=== PATIENT | female | born 1995 | race African-American/Black ===

== ENCOUNTER 2017-02-09 05:25 | Emergency (ER) | payer OTHER ==
[2017-02-09] MEDS ORDERED: Ketorolac Tromethamine 60 MG/2 ML VIAL ONE (06:03)
[2017-02-09] MEDS ORDERED: Amoxicillin/Potassium Clav 875 MG TAB ONE (06:03)
== END 2017-02-09 06:14 | disposition home or self-care (01) ==
LOC: ERS 05:25
DX: K02.9 Dental caries, unspecified (principal); J45.909 Unspecified asthma, uncomplicated
CPT/HCPCS: 96372; J1885

== ENCOUNTER 2017-02-19 17:15 | Emergency (ER) | payer OTHER ==
[~2017-02-19 17:15] MED LIST: ISOVUE-370 76%-LOCM 1 ML ONE
[2017-02-19 18:19] LABS: #Basophils 0.1 thou/uL (0.0-0.2); #Eosinphils 0.7 thou/uL (0.0-0.7); #Monocytes 0.8 thou/uL (0.11-0.59); #Neutrophils 7.1 thou/uL (1.40-6.50); %Basophils 0.9 % (0.0-1.0); %Eosinophils 6.1 % (0.0-10.0); %Monocytes 6.4 % (0.0-10.0); Hematocrit 40.4 % (36.0-47.0); Mean Platelet Volume 8.7 fL (7.4-10.4); Red Blood Cell (RBC) Count 4.61 mill/uL (4.20-5.40); White Blood Cell (WBC) Count 11.6 thou/uL (4.8-10.8)
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
[2017-02-19 18:42] LABS: ALT (SGPT) 32 U/L (8-55); AST (SGOT) 14 U/L (5-34); Alkaline Phosphatase 48 U/L (40-150); Anion Gap 12 mmol/L (10-20); BUN (Urea Nitrogen) 9 mg/dL (7.0-18.7); Bilirubin, Total 0.2 mg/dL (0.2-1.2); Calc. Creatinine Clearance 0 mL/min (70-130); Calcium 8.7 mg/dL (7.8-10.44); Carbon Dioxide 20 mmol/L (22-29); Chloride 111 mmol/L (98-107); Estimated GFR-MDRD Greater than 90; Globulin 2.6 g/dL (2.4-3.5); Lipase 25 U/L (8-78); Protein, Total 6.5 g/dL (6.0-8.3)
[2017-02-19] MEDS ORDERED: Ketorolac Tromethamine 30 MG/ML VIAL ONE ×2 (19:24→19:26)
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
[2017-02-19 20:36] LABS: Bilirubin Negative (Negative); Blood, Urine Large (Negative); Glucose, Urine (Dipstick) Negative (Negative); Ketone, Urine Negative (Negative); Nitrite Negative (Negative); Protein, Urine (Dipstick) Negative (Neg-Trace); Urobilinogen 0.2 mg/dL (0.2-1.0)
[2017-02-19 20:39] LABS: Bacteria/HPF Rare-Few HPF (None Seen); Hyaline Casts/LPF 0-3 HYALINE CAST LPF (0-3 Hyaline); RBC/HPF GREATER THAN 50-TNTC HPF (0-3); Squamous Epithelial 0-3 HPF (0-3)
[2017-02-19 20:42] LABS: Acetaminophen Less than 6.0 mcg/mL (10.0-30.0); Salicylate Less than 8.0 mg/dL (15.0-30.0)
[2017-02-19 20:45] LABS: Amphetamine Not Detected (NotDetected); Methadone Not Detected (NotDetected); Methamphetamine Not Detected (NotDetected)
== END 2017-02-19 23:40 | disposition home or self-care (01) ==
LOC: ERS 17:15
DX: S06.0X9A Concussion with loss of consciousness of unspecified duration, initial encounter (principal); S63.501A Unspecified sprain of right wrist, initial encounter; T14.8XXA Other injury of unspecified body region, initial encounter; J45.909 Unspecified asthma, uncomplicated; V47.5XXA Car driver injured in collision with fixed or stationary object in traffic accident, initial encounter
CPT/HCPCS: 36415; 70450; 71260; 72125; 74177; 80053; 80306; 80307; 81003; 81015; 82550; 83690; 84443; 84703; 85025; 96374; J1885

== ENCOUNTER 2017-06-07 04:15 | Emergency (ER) | payer MEDICAID, OTHER ==
[2017-06-07] MEDS ORDERED: Ondansetron ODT 8 MG TAB ONE (05:06)
[2017-06-07] MEDS ORDERED: Ibuprofen 800 MG TAB ONE (05:06)
== END 2017-06-07 05:13 | disposition home or self-care (01) ==
LOC: ERS 04:15
DX: J11.1 Influenza due to unidentified influenza virus with other respiratory manifestations (principal); J45.909 Unspecified asthma, uncomplicated
CPT/HCPCS: 99283

== ENCOUNTER 2017-12-03 04:57 | Emergency (ER) | payer MEDICAID, OTHER ==
[2017-12-03] MEDS ORDERED: Bupivacaine 0.5% 10 ML VIAL ONE (05:44)
[2017-12-03] MEDS ORDERED: Ibuprofen 800 MG TAB ONE (05:44)
== END 2017-12-03 06:18 | disposition home or self-care (01) ==
LOC: ERS 04:57
DX: K03.81 Cracked tooth (principal); J45.909 Unspecified asthma, uncomplicated
CPT/HCPCS: 64400; J3490

== ENCOUNTER 2018-01-06 03:05 | Emergency (ER) | payer MEDICAID, SELFPAY ==
[2018-01-06 03:41] LABS: Bilirubin Negative (Negative); Blood, Urine Negative (Negative); Clarity CLOUDY (Clear); Glucose, Urine (Dipstick) Negative (Negative); Leukocyte Moderate (Negative); Nitrite Negative (Negative); Protein, Urine (Dipstick) 30 mg/dL (Neg-Trace); Specific Gravity, Urine 1.038 (1.002-1.036); pH, Urine 6.5 (5.0-9.0)
[2018-01-06 03:43] LABS: Pregnancy Test - Urine (BHCG) POSITIVE (Negative); Pregu Control Background? CLEAR/WHITE (CLR/WHITE); Pregu Control Bar Appear? YES (CONTROL BAR); Specific Gravity 1.038 (1.002-1.036)
[2018-01-06] MEDS ORDERED: Acetaminophen 500 MG TAB ONE (03:55)
[2018-01-06] MEDS ORDERED: Dicyclomine 20 MG TAB ONE (03:55)
[2018-01-06 04:21] LABS: #Basophils 0.1 thou/uL (0.0-0.2); #Lymphocytes 3.2 thou/uL (1.20-3.40); #Neutrophils 8.3 thou/uL (1.40-6.50); %Basophils 0.8 % (0.0-1.0); %Eosinophils 7.5 % (0.0-10.0); %Lymphocytes 23.7 % (21.0-51.0); %Monocytes 7.4 % (0.0-10.0); %Neutrophils 60.6 % (42.0-75.0); Hemoglobin 11.5 g/dL (12.0-16.0); Mean Corpuscular HGB CONC 32.1 g/dL (32.0-36.0); Mean Corpuscular Hemoglobin 26.6 pg (27.0-31.0); Mean Corpuscular Volume 82.8 fL (78.0-98.0); Mean Platelet Volume 8.6 fL (7.4-10.4); Platelet Count 291 thou/uL (130-400); RBC Distribution Width 14.3 % (11.5-14.5); Red Blood Cell (RBC) Count 4.32 mill/uL (4.20-5.40); White Blood Cell (WBC) Count 13.6 thou/uL (4.8-10.8)
[2018-01-06 04:26] LABS: Bacteria/HPF 1+ HPF (None Seen); Hyaline Casts/LPF 0-3 HYALINE CAST LPF (0-3 Hyaline); RBC/HPF 0-3 HPF (0-3)
[2018-01-06 04:34] LABS: ALT (SGPT) 8 U/L (8-55); AST (SGOT) 11 U/L (5-34); Albumin 4.1 g/dL (3.5-5.0); Alkaline Phosphatase 58 U/L (40-150); Anion Gap 10 mmol/L (10-20); BUN (Urea Nitrogen) 10 mg/dL (7.0-18.7); Bilirubin, Total 0.3 mg/dL (0.2-1.2); Calc. Creatinine Clearance 0 mL/min (70-130); Calcium 9.1 mg/dL (7.8-10.44); Carbon Dioxide 23 mmol/L (22-29); Chloride 110 mmol/L (98-107); Estimated GFR-MDRD Greater than 90; Globulin 2.9 g/dL (2.4-3.5); Glucose 89 mg/dL (70-105); Potassium 3.5 mmol/L (3.5-5.1); Sodium 139 mmol/L (136-145)
--- NOTE | 2018-01-06 09:56 | ULT ---
PRELIMINARY REPORT/[facility]/EMERGENTY AFTER-HOURS PROCEDURE US First Trimester, Transabdominal US , Transvaginal US Duplex Arterial/Venous of the Pelvis, Complete CLINICAL HISTORY: 22 years old, female; Pain; Other: Mild llq pain, +preg; Gestational age or lmp: Unsure; TECHNIQUE: Real-time transabdominal and transvaginal obstetrical ultrasound of the maternal pelvis and a first t rimester with image documentation. Transvaginal imaging was used for better evaluation of t he fetus and adnexa. Real-time duplex ultrasound scan of the pelvis integrating B-mode two-dimensional vascular structure, Doppler spectral analysis and color flow Doppler imaging. COMPARISON: No relevant prior studies available. FINDINGS: Transabdominal ultrasound showed a small intrauterine fluid collection. Transvaginal ultrasound was p erformed for further evaluation. Duplex ultrasound scan with color Doppler flow and spectral waveform analysis was also performed for evaluation of pelvic and ovarian blood flow and torsion. Gestation: There is a small intrauterine fluid collection that may represent a gestational sac (MSD: 0.31cm-5w0d), although no yolk sac or pole visualized. Placenta/amniotic fluid: Cannot be adequately evaluated due to the early gestational age. Uterus/cervix: See above. No myometrial mass. Right ovary: There is a right adnexal small cyst measuring about 1.2 cm. Otherwise right ovary is unr emarkable. No acute findings. No mass. Normal blood flow. No evidence of torsion. Left ovary: No acute findings. No mass. Normal blood flow. No evidence of torsion. Free fluid: No free fluid. IMPRESSION: 1. There is a small intrauterine fluid collection that may represent a gestational sac, although no y olk sac or pole visualized; recommend close followup with beta-hCG and ultrasound. 2. There is a small right adnexal cyst. Thank you for allowing us to participate in the care of your patient. Dictated and Authenticated by: Kody Vraela MD 01/06/2018 5:54 AM Central Time ([place] & [place]) FINAL REPORT PELVIC ULTRASOUND: Transabdominal and endovaginal ultrasound of pelvis performed. There is a tiny intrauterine fluid collection that could potentially represent a very early gestational sac. Close followup recommended . I am in agreement with the preliminary report. POS: [facility]
== END 2018-01-06 06:11 | disposition home or self-care (01) ==
LOC: ERS 03:05
DX: O23.11 Infections of bladder in pregnancy, first trimester (principal); N30.00 Acute cystitis without hematuria; O99.511 Diseases of the respiratory system complicating pregnancy, first trimester; J45.909 Unspecified asthma, uncomplicated; Z3A.00 Weeks of gestation of pregnancy not specified
CPT/HCPCS: 36415; 76856; 80053; 81003; 81015; 81025; 84702; 85025; 86900; 86901; 87086

== ENCOUNTER 2018-01-20 20:42 | Emergency (ER) | payer MEDICAID, SELFPAY ==
[2018-01-20 21:10] LABS: #Basophils 0.1 thou/uL (0.0-0.2); #Eosinphils 0.8 thou/uL (0.0-0.7); #Lymphocytes 3.1 thou/uL (1.20-3.40); #Monocytes 0.9 thou/uL (0.11-0.59); #Neutrophils 8.9 thou/uL (1.40-6.50); %Basophils 0.8 % (0.0-1.0); %Eosinophils 6.1 % (0.0-10.0); %Lymphocytes 22.6 % (21.0-51.0); %Monocytes 6.3 % (0.0-10.0); %Neutrophils 64.2 % (42.0-75.0); Hemoglobin 11.2 g/dL (12.0-16.0); Mean Corpuscular HGB CONC 33.4 g/dL (32.0-36.0); Mean Corpuscular Hemoglobin 27.3 pg (27.0-31.0); Mean Corpuscular Volume 81.8 fL (78.0-98.0); Mean Platelet Volume 8.8 fL (7.4-10.4); Platelet Count 262 thou/uL (130-400); RBC Distribution Width 14.3 % (11.5-14.5); Red Blood Cell (RBC) Count 4.11 mill/uL (4.20-5.40); White Blood Cell (WBC) Count 13.8 thou/uL (4.8-10.8)
[2018-01-20 21:30] LABS: Bilirubin Negative (Negative); Blood, Urine Small (Negative); Clarity CLOUDY (Clear); Glucose, Urine (Dipstick) Negative (Negative); Leukocyte Moderate (Negative); Nitrite Negative (Negative); Protein, Urine (Dipstick) Trace mg/dL (Neg-Trace); Specific Gravity, Urine 1.042 (1.002-1.036); pH, Urine 5.5 (5.0-9.0)
[2018-01-20 21:34] LABS: Bacteria/HPF 1+ HPF (None Seen); Hyaline Casts/LPF 7-10 HYALINE CAST LPF (0-3 Hyaline); Pathc Cast-AUWi Flag 1.88 (0-2.49); RBC/HPF 0-3 HPF (0-3); Squamous Epithelial 21-50 HPF (0-3); WBC/HPF 21-50 HPF (0-3)
[2018-01-20] MEDS ORDERED: Metoclopramide HCl 10 MG/2 ML VIAL ONE (22:45)
[2018-01-20] MEDS ORDERED: diphenhydrAMINE 50 MG/ML VIAL ONE (22:45)
[2018-01-20] MEDS ORDERED: Sodium Chloride 0.9% 100 ML ONE (22:45)
[2018-01-20 23:08] LABS: ALT (SGPT) 8 U/L (8-55); AST (SGOT) 12 U/L (5-34); Albumin 4.2 g/dL (3.5-5.0); Alkaline Phosphatase 51 U/L (40-150); Anion Gap 11 mmol/L (10-20); BUN (Urea Nitrogen) 11 mg/dL (7.0-18.7); Bilirubin, Total 0.2 mg/dL (0.2-1.2); Calc. Creatinine Clearance 0 mL/min (70-130); Calcium 9.4 mg/dL (7.8-10.44); Carbon Dioxide 21 mmol/L (22-29); Chloride 107 mmol/L (98-107); Estimated GFR-MDRD Greater than 90; Glucose 78 mg/dL (70-105); Potassium 3.7 mmol/L (3.5-5.1); Protein, Total 7.2 g/dL (6.0-8.3); Sodium 135 mmol/L (136-145)
--- NOTE | 2018-01-20 23:49 | ULT ---
OBSTETRIC SONOGRAM TRANSABDOMINAL IMAGING WITH DUPLEX EVALUATION 01/20/18 HISTORY: Early . Pelvic pain and bleeding. FINDINGS: Gestational sac in the endometrial cavity contains a yolk sac and pole. Heart motion is demonst rated at 120 beats per minute. Measurements correlate with 6 weeks, 5 days gestational age giving an estimated date of delivery of 09/10/18. Right ovary is 4.2 cm and left is 2.8 cm. Each has a normal sonographic appearance with good color an d spectral doppler flow. IMPRESSION: Single viable intrauterine gestation with estimated gestational age of 6 weeks, 5 days. No significan t abnormalities are apparent. POS: [facility]
[2018-01-22 23:28] LABS: Chlamydia by PCR Not Detected (NotDetected); GC by PCR Not Detected (NotDetected)
== END 2018-01-21 00:32 | disposition home or self-care (01) ==
LOC: ERS 20:42
DX: O20.9 Hemorrhage in early pregnancy, unspecified (principal); O99.511 Diseases of the respiratory system complicating pregnancy, first trimester; J45.909 Unspecified asthma, uncomplicated; Z3A.01 Less than 8 weeks gestation of pregnancy
CPT/HCPCS: 36415; 76856; 80053; 81003; 81015; 84702; 85025; 86900; 86901; 87480; 87491; 87510; 87591; 87660; 96365; J1200; J2765; J7050

== ENCOUNTER 2018-06-15 22:46 | Day surgery (SDC) | payer OTHER ==
[2018-06-15 23:27] VITALS: BP 136/83; TEMP 98.2; BMI 25.7
--- NOTE | 2018-06-16 02:02 | PRG ---
DATE OF SERVICE: 06/16/2018 Progress note for triage visit. Date of triage visit 06/15/2018. CHIEF COMPLAINT: Left lower quadrant pain at 29 weeks' gestational age. HISTORY OF PRESENT ILLNESS: Ms. Yareli Vila is a 22-year-old, G3, P2 at approximately 29 weeks' gestational age, who gets care with Dr. Eng, who presented to triage after noting approximately 30 minutes of left lower quadrant pain this evening. She reports that the pain is sharp and intermittent and occurs every few minutes. The patient reports good movement and that the pain is more intense when the baby is moving. The patient denies any urinary frequency, urgency, or dysuria. She denies any vaginal bleeding, vaginal discharge, odor, or irritation. She denies any recent constipation or diarrhea. She denies feeling any uterine contractions, so was concerned that the pain could be related to labor, so she came in for evaluation. The patient denies vaginal bleeding or leakage of fluid. PAST MEDICAL HISTORY: Significant for asthma. ALLERGIES: NO KNOWN DRUG ALLERGIES. FAMILY HISTORY: Noncontributory. PAST SURGICAL HISTORY: Negative. REVIEW OF SYSTEMS: Negative except as stated per HPI. PHYSICAL EXAMINATION: VITAL SIGNS: Blood pressure 130s/80s, afebrile. GENERAL: No acute distress. HEENT: Grossly normal, normocephalic. Trachea midline. CHEST: Nonlabored breathing. ABDOMEN: Gravid, soft, nontender to palpation; however, the left lower quadrant discomfort elicited with lateral manipulation of the uterus. No rebound or guarding. Palpable movement noted. : Deferred. EXTREMITIES: No edema. Moves extremities equally. PSYCHIATRIC: Appropriate affect. NEUROLOGIC: Grossly normal. heart tones reactive with good variability. Accelerations present. No decelerations. Tocometer; showed no contractions noted. ASSESSMENT AND PLAN: Ms. Yareli Vila is a 22-year-old, G3, P2, at 29 weeks with left lower quadrant pain that I suspect is round ligament pain exacerbated by strong movements. I reassured the patient and offered conservative suggestions for management of the discomfort such as position change, rest, hydration, abdominal support, binder, and Tylenol. We discussed close monitoring for any change in her symptoms and reviewed labor symptoms. If she is to note any of the issue, she is to call provider or return to labor and delivery for evaluation. The patient's questions were answered and she was discharged home in good condition. Job ID: [id number]
== END 2018-06-15 23:49 | disposition home or self-care (01) ==
LOC: L&D/OP 22:46
PROVIDERS: ATTEND Obstetrics & Gynecology
DX: O99.89 Other specified diseases and conditions complicating pregnancy, childbirth and the puerperium (principal); R10.32 Left lower quadrant pain; O99.513 Diseases of the respiratory system complicating pregnancy, third trimester; J45.909 Unspecified asthma, uncomplicated; Z3A.29 29 weeks gestation of pregnancy
CPT/HCPCS: 99282

== ENCOUNTER 2018-08-10 09:34 | Day surgery (SDC) | payer OTHER ==
[2018-08-10 10:20] VITALS: BP 144/79; TEMP 98.7
[2018-08-10 10:27] VITALS: BMI 30.9
[2018-08-10 11:51] LABS: #Basophils 0.1 thou/uL (0.0-0.2); #Eosinphils 0.2 thou/uL (0.0-0.7); #Lymphocytes 2.1 thou/uL (1.20-3.40); #Monocytes 1.2 thou/uL (0.11-0.59); #Neutrophils 13.3 thou/uL (1.40-6.50); %Basophils 0.4 % (0.0-1.0); %Eosinophils 1.4 % (0.0-10.0); %Lymphocytes 12.5 % (21.0-51.0); %Monocytes 7.1 % (0.0-10.0); %Neutrophils 78.6 % (42.0-75.0); Hemoglobin 9.4 g/dL (12.0-16.0); Mean Corpuscular HGB CONC 30.8 g/dL (32.0-36.0); Mean Corpuscular Hemoglobin 23.5 pg (27.0-31.0); Mean Corpuscular Volume 76.5 fL (78.0-98.0); Mean Platelet Volume 9.9 fL (7.4-10.4); Platelet Count 251 thou/uL (130-400); RBC Distribution Width 15.7 % (11.5-14.5); White Blood Cell (WBC) Count 16.9 thou/uL (4.8-10.8)
[2018-08-10 12:11] LABS: ALT (SGPT) 8 U/L (8-55); AST (SGOT) 17 U/L (5-34); Albumin 3.6 g/dL (3.5-5.0); Alkaline Phosphatase 118 U/L (40-150); Anion Gap 10 mmol/L (10-20); BUN (Urea Nitrogen) 4 mg/dL (7.0-18.7); Bilirubin, Total 0.3 mg/dL (0.2-1.2); Calc. Creatinine Clearance 190 mL/min (70-130); Calcium 9.2 mg/dL (7.8-10.44); Carbon Dioxide 24 mmol/L (22-29); Chloride 106 mmol/L (98-107); Estimated GFR-MDRD Greater than 90; Globulin 2.6 g/dL (2.4-3.5); Glucose 86 mg/dL (70-105); Potassium 4.2 mmol/L (3.5-5.1); Protein, Total 6.2 g/dL (6.0-8.3); Sodium 136 mmol/L (136-145)
[2018-08-10 15:01] LABS: Amphetamine Not Detected (NotDetected); Barbiturates Screen Not Detected (NotDetected); Benzodiazepine Screen Not Detected (NotDetected); Cocaine Metabolite Screen Not Detected (NotDetected); Medtox Control Line Valid? VALID (VALID); Medtox Reader # READER 4; Methadone Not Detected (NotDetected); Methamphetamine Not Detected (NotDetected); Opiate Screen Not Detected (NotDetected); Oxycodone Screen Not Detected (NotDetected); Phencyclidine (PCP) Not Detected (NotDetected); THC/Cannabinoid Screen Not Detected (NotDetected); Tricyclic Screen Not Detected (NotDetected)
--- NOTE | 2018-08-10 16:45 | PRG ---
DATE OF SERVICE: 08/10/2018 PRIMARY OB: Manish Eng MD CHIEF COMPLAINT: Presyncope in clinic with a deceleration on heart tracing. HISTORY OF PRESENT ILLNESS: The patient is a 22-year-old, G3, P2 female with an intrauterine at 35 weeks and 3 days, who was sent from clinic today for concerns found during routine testing. The patient does have a recent history of elevated blood pressures in this and is being monitored twice weekly by her primary OB. Today during her NST, the patient reports that she had three syncopal episodes. Upon discussing with the physician, it was described more as presyncopal and also experienced on heart tracing deceleration. With these findings, the patient was sent to Labor and Delivery for evaluation. The patient denies any previous symptoms such as this. Denies any history of fever, nausea, or vomiting. The patient has had some more nausea in the third trimester. The patient denies a history of chronic hypertension. She denies fall, headache, chest pain. She does experience some shortness of breath. She did report some chest pain down in the emergency room that was cleared by the ER with EKG and other testing that they found adequate. The patient denies any diarrhea or constipation. She denies any hip problems or knee problems or muscle weakness. She denies any new rashes. She denies a change in her discharge or vaginal bleeding. She denies urinary urgency or frequency. The patient reports that she does not work outside the home at this time. She does report she had preeclampsia with her previous baby and went into labor at 37 weeks. She denies any uterine contractions. The patient denies right upper quadrant tenderness. PAST MEDICAL HISTORY: Significant for -induced hypertension with this . Asthma, has been off albuterol now for a year or 2. PAST SURGICAL HISTORY: Negative. ALLERGIES: NO KNOWN DRUG ALLERGIES. MEDICATIONS: vitamins. SOCIAL HISTORY: Denies drug, alcohol, or tobacco use. OB LABS: Blood type is O positive. Antibody screen is negative. Hepatitis B surface antigen is nonreactive in the first trimester. HIV is nonreactive in the first trimester. She is rubella immune. RPR in the third trimester is nonreactive. Hepatitis B surface antigen and HIV in the third trimester are nonreactive. REVIEW OF SYSTEMS: Per HPI. PHYSICAL EXAMINATION: VITAL SIGNS: Blood pressures here have ranged from one teens over 60s to 160s over 80s to 150s over 110. Most of the pressures have remained in the normal to mild range. She did have two blood pressures [id number] that were isolated with a systolic of 165 and a diastolic of 110. Other than that immediately following and prior to this, blood pressures that were in the one teens over 65 and 130s over 69, and subsequent hour and half of blood pressures remained in the normal range. Heart rate is in the 90s to low 100s, saturating 99% to 100% on room air. There are some periods where the saturating showing be in the 80s to 90s, we are trying to obtain sats through an acrylic nail, temperature 98.7. GENERAL: She appears to be in no acute distress. She is alert, oriented, cooperative, and pleasant to interact with. HEAD: Normocephalic, atraumatic. LUNGS: Clear to auscultation bilaterally, though she does not have a lot of air movement. They are clear. ABDOMEN: Soft and gravid, nontender to palpation. EXTREMITIES: Nontender, nonedematous. : Has been deferred. Heart tones: heart tracing NST for nonreactive NST in the office. Baseline is noted to be in the 130s with moderate long-term variability positive 15 x 15 accelerations, no decelerations. Tocometer is showing some irritability, but no regular uterine contractions. LABORATORY DATA: CBC shows a white count of 16.9, hemoglobin 9.4, hematocrit 30.6, and platelets of 251,000, neutrophils of 78%. Chemistry shows sodium of 136, potassium of 4.2, BUN of 4, creatinine of 0.6. AST of 17, ALT of 8. Urine protein is negative. Urine drug screen is negative. ASSESSMENT AND PLAN: The patient is a 22-year-old, G3, P2 female with an intrauterine at 35 weeks and 3 days, who is being followed by her primary OB Dr. Eng for -induced hypertension. The patient has had mild ranged pressures and normal pressures during the stay over 4 hours with a single systolic of 165 and a single diastolic of 110. The patient is without symptoms. She is being discharged home with instructions to follow up with her primary OB as scheduled. She has also been asked to check her blood pressures at home and to return should she experience pressures in the 160s on systolic and in the 100 diastolic. She has also been given labor precautions. Job ID: [id number]
--- NOTE | 2018-08-13 17:54 | EKG ---
Test Reason : Blood Pressure : / mmHG Vent. Rate : 113 BPM Atrial Rate : 113 BPM P-R Int : 116 ms QRS Dur : 076 ms QT Int : 336 ms P-R-T Axes : 047 012 032 degrees QTc Int : 460 ms Sinus tachycardia Otherwise normal ECG When compared with ECG of 24-FEB-2016 13:04, No significant change was found Confirmed by RONA KNIGHT (2) on 08/13/2018 5:53:28 PM Referred By: TOM Confirmed By:RONA KNIGHT
== END 2018-08-10 15:05 | disposition home or self-care (01) ==
LOC: L&D/OP 09:34
PROVIDERS: ATTEND Obstetrics & Gynecology
DX: O13.3 Gestational [pregnancy-induced] hypertension without significant proteinuria, third trimester (principal); O36.8130 Decreased fetal movements, third trimester, not applicable or unspecified; O99.513 Diseases of the respiratory system complicating pregnancy, third trimester; J45.909 Unspecified asthma, uncomplicated; Z3A.35 35 weeks gestation of pregnancy; Z87.59 Personal history of other complications of pregnancy, childbirth and the puerperium
CPT/HCPCS: 36415; 59025; 80053; 80306; 81003; 85025; 93005; 93010; 99284

== ENCOUNTER 2018-08-21 17:15 | Inpatient (IN) | payer OTHER ==
[~2018-08-21 17:15] MED LIST changes: +Bupivacaine 0.25% HCL 30 ML VIAL ONE; +Bupivacaine/Epinephrine 0.25% 30 ML VIAL ONE; +Bupivacaine/Epinephrine 0.5% 10 ML VIAL ONE; -ISOVUE-370 76%-LOCM 1 ML ONE; +Sodium Chloride 0.9% (PF) 10 ML VIAL ONE
[2018-08-21] MEDS ORDERED: NS / Oxytocin 40 units/1000ml 1,000 ML IV PRN (20:36)
[2018-08-21] MEDS ORDERED: Lidocaine 1% (PF) 30 ML VIAL SC PRN (20:36)
[2018-08-21] MEDS ORDERED: Butorphanol Tartrate 1 MG/ML VIAL SLOW IVP PRN (20:36)
[2018-08-21] MEDS ORDERED: Docusate 100 MG CAP PO PRN (20:36)
[2018-08-21] MEDS ORDERED: Promethazine HCl 25 MG/ML VIAL IM PRN (20:36)
[2018-08-21] MEDS ORDERED: Zolpidem Tartrate 5 MG TAB PO PRN (20:36)
[2018-08-21] MEDS ORDERED: Diphenoxylate HCl/Atropine Tablet PO PRN ×2 (20:36)
[2018-08-21] MEDS ORDERED: Ondansetron PF 4 MG/2 ML Vial IVP PRN (20:36)
[2018-08-21] MEDS ORDERED: Misoprostol 200 MCG TAB PR PRN (20:36)
[2018-08-21] MEDS ORDERED: HYDROcodone/Acetaminophen 5/325 mg Tablet PO PRN ×2 (20:36)
[2018-08-21] MEDS ORDERED: Ibuprofen 800 MG TAB PO PRN (20:36)
[2018-08-21] MEDS ORDERED: Carboprost 250 MCG/ML AMP IM PRN (20:36)
--- NOTE | 2018-08-21 20:41 | PDOC.LDHP ---
Labor and Delivery H&P Chief complaint: scheduled induction HPI: 22 y/o at 37 and 0/7 weeks presents for medical induction of labor for GHTN. Due date: 09/11/18 Grav: 2 Para: 1 Current complications: gestational hypertension Current medications: pre-yoni vitamins Allergies/Adverse Reactions: Allergies Allergy/AdvReac Type Severity Reaction Status Date / Time No Known Allergies Allergy Verified 06/15/18 23:08 - Physical Exam Vital signs reviewed and normal: yes General: NAD, resting Heart: RRR Lungs: CTAB Abdomen: NTTP Extremeties: no edema FHT: category 1 - Plan Plan: admit to L&D, cervical ripening
[2018-08-21] MEDS ORDERED: NS w/ Oxytocin 10 units 500 ML IV SCH (20:45)
[2018-08-21 21:50] VITALS: BMI 30.9
[2018-08-21 22:09] LABS: Hemoglobin 8.8 g/dL (12.0-16.0); Mean Corpuscular HGB CONC 31.9 g/dL (32.0-36.0); Mean Corpuscular Hemoglobin 23.8 pg (27.0-31.0); Mean Corpuscular Volume 74.7 fL (78.0-98.0); Mean Platelet Volume 9.9 fL (7.4-10.4); Platelet Count 259 thou/uL (130-400); RBC Distribution Width 16.3 % (11.5-14.5); Red Blood Cell (RBC) Count 3.69 mill/uL (4.20-5.40); White Blood Cell (WBC) Count 14.3 thou/uL (4.8-10.8)
[2018-08-21] MEDS: Lactated Ringer's 1,000 ML IV SCH (22:10)
[2018-08-21 22:48] LABS: Syphilis Antibody Nonreactive (Nonreactive); Syphilis Antibody Index 0.09 S/CO (<1.00 Non-Reactive)
[2018-08-21 23:27] LABS: HBSAg Index 0.28 S/CO (0-0.99); Hep B Surf Ag Non-Reactive S/CO (NonReactive)
[2018-08-22] MEDS: Misoprostol 100 MCG TAB VAG SCH ×4 (04:04→18:47)
[2018-08-22] MEDS: NS w/ Oxytocin 10 units 500 ML IV SCH ×2 (04:06→15:24)
[2018-08-22] MEDS: Lactated Ringer's 1,000 ML IV SCH ×3 (04:06→15:24)
[2018-08-22] MEDS ORDERED: Fentanyl 4 mcg/Bup 0.1% Cadd 100 ML ONE ×2 (08:45→14:59)
[2018-08-22] MEDS ORDERED: Naloxone HCl 0.4 mg/ml Vial IVP PRN ×2 (09:05)
[2018-08-22] MEDS ORDERED: Acetaminophen 325 MG TAB PO PRN (09:05)
[2018-08-22] MEDS ORDERED: diphenhydrAMINE 50 MG/ML VIAL IVP PRN (09:05)
[2018-08-22] MEDS ORDERED: Eucerin (Mineral Oil/Petrolatum,White) 30 gm Jar TOP PRN (09:05)
[2018-08-22] MEDS ORDERED: ePHEDrine/0.9% NaCl/PF SYRINGE 50 mg/10 ml SLOW IVP PRN (09:05)
[2018-08-22] MEDS ORDERED: Promethazine HCl 25 MG/ML VIAL IM PRN ×2 (09:05→21:24)
[2018-08-22] MEDS ORDERED: Lactated Ringer's 500 ML IV PRN (09:05)
[2018-08-22] MEDS ORDERED: Ondansetron PF 4 MG/2 ML Vial IVP PRN ×2 (09:05→21:24)
[2018-08-22] MEDS ORDERED: Fentanyl 4 mcg/Bupivacaine 0.1% Cassette 100 ML EPIDURAL SCH (09:15)
[2018-08-22] MEDS ORDERED: Communication Order-Pharmacy FS SCH (09:15)
[2018-08-22] MEDS ORDERED: Lidocaine 1% (PF) 30 ML VIAL ONE (17:14)
[2018-08-22] MEDS: NS / Oxytocin 40 units/1000ml 1,000 ML ONE ×2 (17:45→18:46)
[2018-08-22] MEDS ORDERED: NS / Oxytocin 40 units/1000ml 1,000 ML IV SCH (21:24)
[2018-08-22] MEDS ORDERED: Varicella virus, LIVE 0.5 ML VIAL SC ONE (21:24)
[2018-08-22] MEDS ORDERED: Milk Of Magnesia 30 ML UDCUP PO PRN (21:24)
[2018-08-22] MEDS ORDERED: Bisacodyl 10 MG SUPP PR PRN (21:24)
[2018-08-22] MEDS ORDERED: Lanolin Ointment 7 GM TUBE TOP PRN (21:24)
[2018-08-22] MEDS ORDERED: Measles/Mumps/Rubella 10 MCG/0.5 ML VIAL SC ONE (21:24)
[2018-08-22] MEDS ORDERED: diphenhydrAMINE 25 MG CAP PO PRN (21:24)
[2018-08-22] MEDS ORDERED: Adacel (T-DAP) 0.5 ML SYRINGE IM ONE (21:24)
[2018-08-22] MEDS ORDERED: Preparation H Ointment 28 GM TUBE PR PRN (21:24)
[2018-08-22] MEDS: Ibuprofen 800 MG TAB PO SCH (21:57)
[2018-08-22] MEDS: Docusate Calcium (SURFAK) 240 MG CAP PO SCH (21:58)
[2018-08-22] MEDS: HYDROcodone/Acetaminophen 5/325 mg Tablet PO PRN (23:44)
[2018-08-23] MEDS: Ibuprofen 800 MG TAB PO SCH ×3 (05:09→21:41)
[2018-08-23] MEDS: HYDROcodone/Acetaminophen 5/325 mg Tablet PO PRN ×3 (05:09→18:27)
[2018-08-23 06:43] LABS: Hemoglobin 9.1 g/dL (12.0-16.0); Mean Corpuscular HGB CONC 32.4 g/dL (32.0-36.0); Mean Corpuscular Hemoglobin 24.1 pg (27.0-31.0); Mean Corpuscular Volume 74.6 fL (78.0-98.0); Platelet Count 219 thou/uL (130-400); RBC Distribution Width 16.3 % (11.5-14.5); Red Blood Cell (RBC) Count 3.79 mill/uL (4.20-5.40)
[2018-08-23] MEDS: Misoprostol 100 MCG TAB VAG SCH (08:57)
[2018-08-23] MEDS: Prenatal Vitamin 1 TAB PO SCH (08:58)
[2018-08-23] MEDS: Docusate Calcium (SURFAK) 240 MG CAP PO SCH ×2 (08:58→21:41)
[2018-08-23] MEDS: Ferrous Sulfate 325 MG TAB PO SCH ×2 (08:58→17:05)
--- NOTE | 2018-08-23 12:28 | PDOC.PP ---
Post Progress Note Post Day #: 1 PO intake tolerated: yes Flatus: yes Ambulation: yes Vital Signs (12 hours) Temp Pulse Resp BP Pulse Ox 08/23/18 12:02 97.8 F 75 20 135/82 08/23/18 08:33 97.6 F 84 20 135/85 97 08/23/18 04:45 98.7 F 81 18 143/74 H 08/23/18 00:41 98.2 F 87 18 125/73 Weight Weight 180 lb - Physical Examination General: NAD Cardiovascular: no m/r/g, RRR Respiratory: clear to auscultation bilaterally, non-labored breathing Abdominal: + bowel sounds, lochia, no distention Extremities: negative homans (B) Neurological: no gross focal deficits Psychiatric: A&Ox3, normal affect (DC home when baby is discharged.) Result Diagrams: 08/23/18 06:21 Additional Labs: Post Labs Blood Type O POSITIVE 08/21/18 21:40 Hep Bs Antigen Non-Reactive S/CO (NonReactive) 08/21/18 21:40
--- NOTE | 2018-08-24 05:43 | DN ---
DATE OF PROCEDURE: 08/22/2018 PREOPERATIVE DIAGNOSIS: Intrauterine at 37 weeks and 1 day with a term medical induction of labor for gestational hypertension. POSTOPERATIVE DIAGNOSIS: Intrauterine at 37 weeks and 1 day with a term medical induction of labor for gestational hypertension. PROCEDURE: Spontaneous vaginal delivery over intact perineum. FINDINGS: Viable female weighing 2847 g or 6 pounds 4 ounces. Apgars of 9 and 9. QUANTITATIVE BLOOD LOSS: Approximately 100 mL. COMPLICATIONS: None. DETAILS OF THE PROCEDURE: The patient presented to [facility] where she was admitted to the labor and delivery service. The patient underwent a normal and uneventful labor with normal cervical dilatation until she was found to be completely dilated. She was then allowed to push and was able to bring the baby down and delivered the baby in a vertex presentation without difficulties. Once the head delivered in occiput anterior position, the shoulders followed spontaneously along with the rest of the baby's body. Once out the baby's mouth and nose were bulb suctioned. The cord was clamped and cut and baby was handed to waiting attendants. Cord blood was collected. Gentle fundal massage was performed and the placenta delivered intact without problems. Hemostasis was assured. Quantitative blood loss was calculated. Inspection of the cervix, vaginal vault, and perineum did not reveal any lacerations needing suturing. Once again, hemostasis was within normal limits and the patient was allowed to recover in the labor and delivery room. Baby went to nursery. Job ID: [id number]
[2018-08-24] MEDS: Ibuprofen 800 MG TAB PO SCH (05:52)
[2018-08-24] MEDS: HYDROcodone/Acetaminophen 5/325 mg Tablet PO PRN (05:55)
[2018-08-24 07:42] VITALS: BP 127/83; TEMP 98.2
[2018-08-24] MEDS: Ferrous Sulfate 325 MG TAB PO SCH (09:43)
[2018-08-24] MEDS: Docusate Calcium (SURFAK) 240 MG CAP PO SCH (09:43)
[2018-08-24] MEDS: Prenatal Vitamin 1 TAB PO SCH (09:43)
== END 2018-08-24 12:00 | disposition home or self-care (01) | DRG 807 ==
LOC: L&D 21:18 → 3SW 08-22 21:42
PROVIDERS: ADMIT Obstetrics & Gynecology; ATTEND Obstetrics & Gynecology
PROC: 10E0XZZ Delivery of Products of Conception, External Approach (ICD-10-PCS; principal; 2018-08-22)
PROC: 3E0P7VZ Introduction of Hormone into Female Reproductive, Via Natural or Artificial Opening (ICD-10-PCS; 2018-08-22)
DX: O13.4 Gestational [pregnancy-induced] hypertension without significant proteinuria, complicating childbirth (principal); Z37.0 Single live birth; Z3A.37 37 weeks gestation of pregnancy
CPT/HCPCS: 36415; 51702; 85027; 86780; 86850; 86900; 86901; 87340; J2001; J3490; S0020

== ENCOUNTER 2018-09-24 22:18 | Emergency (ER) | payer OTHER ==
[2018-09-24] MEDS ORDERED: Lidocaine 1% w/Epinephrine 1:100K 20 ML VIAL ONE (22:37)
== END 2018-09-24 22:52 | disposition home or self-care (01) ==
LOC: ERS 22:18
DX: K02.9 Dental caries, unspecified (principal); J45.909 Unspecified asthma, uncomplicated
CPT/HCPCS: 64400; J2001

== ENCOUNTER 2019-03-21 18:12 | Emergency (ER) | payer OTHER, SELFPAY | END 2019-03-21 19:30 | disposition home or self-care (01) | LOC: ERS 18:12 | DX: H10.9 Unspecified conjunctivitis (principal); J45.909 Unspecified asthma, uncomplicated | CPT/HCPCS: 99282 ==

== ENCOUNTER 2019-06-23 10:40 | Emergency (ER) | payer SELFPAY ==
[2019-06-23] MEDS ORDERED: Lidocaine 1% PF 5 ML VIAL ONE (12:40)
[2019-06-23] MEDS ORDERED: Ketorolac Tromethamine 30 MG/ML VIAL ONE (12:40)
== END 2019-06-23 12:55 | disposition home or self-care (01) ==
LOC: ERS 10:40
DX: K02.9 Dental caries, unspecified (principal); K03.81 Cracked tooth; K05.30 Chronic periodontitis, unspecified; J45.909 Unspecified asthma, uncomplicated
CPT/HCPCS: 96372; 99283; J1885; J2001

== ENCOUNTER 2020-08-20 03:12 | Emergency (ER) | payer OTHER | END 2020-08-20 03:52 | disposition home or self-care (01) | LOC: ERS 03:12 | DX: K03.81 Cracked tooth (principal); J45.909 Unspecified asthma, uncomplicated | CPT/HCPCS: 99282 ==

== ENCOUNTER 2020-11-16 07:03 | Emergency (ER) | payer OTHER | END 2020-11-16 07:37 | disposition home or self-care (01) | LOC: ERS 07:03 | DX: K02.9 Dental caries, unspecified (principal); J45.909 Unspecified asthma, uncomplicated | CPT/HCPCS: 99282 ==

== ENCOUNTER 2021-05-15 08:45 | Emergency (ER) | payer OTHER | END 2021-05-15 09:37 | disposition home or self-care (01) | LOC: ERS 08:45 | DX: H00.014 Hordeolum externum left upper eyelid (principal) | CPT/HCPCS: 99283 ==

== ENCOUNTER 2021-07-02 18:26 | Emergency (ER) | payer OTHER | END 2021-07-02 19:54 | LOC: ERS 18:26 | DX: K02.9 Dental caries, unspecified (principal); J45.909 Unspecified asthma, uncomplicated | CPT/HCPCS: 99283 ==

== ENCOUNTER 2022-03-16 19:23 | Emergency (ER) | payer OTHER ==
[2022-03-16] MEDS ORDERED: Ketorolac Tromethamine 30 MG/ML VIAL ONE (20:23)
== END 2022-03-16 20:53 | disposition home or self-care (01) ==
LOC: ERS 19:23
DX: K04.7 Periapical abscess without sinus (principal)
CPT/HCPCS: 96372; 99283; J1885

== ENCOUNTER 2022-04-10 17:53 | Emergency (ER) | payer OTHER ==
[2022-04-10] MEDS ORDERED: Ketorolac Tromethamine 30 MG/ML VIAL ONE (20:11)
== END 2022-04-10 20:41 | disposition home or self-care (01) ==
LOC: ERS 17:53
DX: M25.532 Pain in left wrist (principal); V89.2XXA Person injured in unspecified motor-vehicle accident, traffic, initial encounter
CPT/HCPCS: 96372; J1885

== ENCOUNTER 2022-04-18 17:16 | Emergency (ER) | payer OTHER | END 2022-04-18 18:04 | disposition home or self-care (01) | LOC: ERS 17:16 | DX: M25.532 Pain in left wrist (principal); V49.9XXA Car occupant (driver) (passenger) injured in unspecified traffic accident, initial encounter | CPT/HCPCS: 99283 ==

== ENCOUNTER 2022-06-23 15:44 | Emergency (ER) | payer OTHER ==
[2022-06-23] MEDS ORDERED: Ketorolac Tromethamine 30 MG/ML VIAL ONE (16:12)
== END 2022-06-23 16:30 | disposition home or self-care (01) ==
LOC: ERS 15:44
DX: K02.9 Dental caries, unspecified (principal)
CPT/HCPCS: 96372; 99282; J1885

== ENCOUNTER 2022-06-26 16:35 | Emergency (ER) | payer OTHER ==
[2022-06-26] MEDS ORDERED: Acetaminophen/Codeine 30-300mg Tablet ONE ×2 (17:22→17:25)
[2022-06-26] MEDS ORDERED: Lidocaine 1% MPF 2 ML VIAL ONE ×3 (17:25→17:53)
[2022-06-26] MEDS ORDERED: Ketorolac Tromethamine 30 MG/ML VIAL ONE (18:00)
== END 2022-06-26 18:17 | disposition home or self-care (01) ==
LOC: ERS 16:35
DX: S02.5XXA Fracture of tooth (traumatic), initial encounter for closed fracture (principal); K02.9 Dental caries, unspecified; I10 Essential (primary) hypertension
CPT/HCPCS: 64400; J1885

== ENCOUNTER 2023-10-31 21:55 | Emergency (ER) | payer MEDICAID, OTHER ==
[2023-11-01] MEDS ORDERED: Ketorolac Tromethamine 30 MG (1 mL) VIAL ONE (00:26)
== END 2023-11-01 00:45 | disposition home or self-care (01) ==
LOC: ERS 21:55
DX: K08.89 Other specified disorders of teeth and supporting structures (principal); I10 Essential (primary) hypertension
CPT/HCPCS: 96372; 99282; J1885

== ENCOUNTER 2023-11-10 19:11 | Emergency (ER) | payer MEDICAID ==
[2023-11-10] MEDS ORDERED: Ketorolac Tromethamine 30 MG (1 mL) VIAL ONE (21:51)
== END 2023-11-10 22:26 | disposition home or self-care (01) ==
LOC: ERS 19:11
DX: K08.89 Other specified disorders of teeth and supporting structures (principal); K02.9 Dental caries, unspecified; I10 Essential (primary) hypertension
CPT/HCPCS: 96372; J1885

== ENCOUNTER 2025-05-06 10:29 | Emergency (ER) | payer OTHER ==
[2025-05-06 11:00] LABS: CAUTI Indications for Culture Pelvic or flank pain; Glucose, Urine (Dipstick) Normal (Negative); Leukocyte 250 Leu/uL (Negative); Pregnancy Test - Urine (BHCG) Negative (Negative); Pregu Control Background? CLEAR/WHITE (CLR/WHITE); Pregu Control Bar Appear? YES (CONTROL BAR); Protein, Urine (Dipstick) Negative (Neg-Trace); RBC/HPF 0-3 HPF (0-3); Specific Gravity, Urine 1.016 (1.002-1.036); WBC/HPF 0-3 HPF (0-3)
[2025-05-06 11:01] LABS: Bacteria/HPF 1+ HPF (None Seen); Urine Culture Reflex No No
[2025-05-06] MEDS ORDERED: Ketorolac Tromethamine 30 MG (1 mL) VIAL ONE (11:09)
== END 2025-05-06 11:59 ==
LOC: ERS 10:29
DX: M54.50 Low back pain, unspecified (principal); I10 Essential (primary) hypertension
CPT/HCPCS: 81001; 81025; 96372; 99283; J1885